=== PATIENT | female | born 1970 | race Caucasian/White ===

== ENCOUNTER → 2017-07-13 | Outpatient (CLI) | payer OTHER | LOC: FIMAGING 14:06 | PROVIDERS: ATTEND Family Medicine | DX: Z12.31 Encounter for screening mammogram for malignant neoplasm of breast (principal) | CPT/HCPCS: G0202 ==

== ENCOUNTER → 2018-07-13 | Outpatient (CLI) | payer OTHER | LOC: FIMAGING 09:06 | PROVIDERS: ATTEND Family Medicine | DX: Z12.31 Encounter for screening mammogram for malignant neoplasm of breast (principal) ==

== ENCOUNTER → 2018-07-26 | Outpatient (CLI) | payer OTHER | LOC: FIMAGING 12:19 | PROVIDERS: ATTEND Family Medicine | DX: N60.01 Solitary cyst of right breast (principal) ==

== ENCOUNTER → 2019-01-22 | Outpatient (CLI) | payer OTHER | LOC: FIMAGING 14:58 | PROVIDERS: ATTEND Family Medicine | DX: S63.235A Subluxation of proximal interphalangeal joint of left ring finger, initial encounter (principal) ==